=== PATIENT | female | born 1950 | race Caucasian/White ===

== ENCOUNTER → 2018-09-17 | Outpatient (REF) ==
[~2018-09-17] MED LIST: ALPRAZOLAM0.25 MG PO; CIPROFLOXACN500 MG PO; CRESTOR10 MG PO; CRESTOR5 MG PO; CYCLOBENZAPR10 MG PO; DIFLUCAN100 MG PO; ENALAPRIL10 MG PO; FLONASE NASAL50 MCG; FLUOXETINE40 MG PO; FUROSEMIDE40 MG PO; LEXAPRO10 MG PO; LIPITOR10 MG PO; LORTAB 1010 MG PO; LORTAB 7.5 PO; MACROBID100 MG PO; METRONIDAZOL500 MG PO; MUPIROCIN2 % EX; NIACIN500 M3 PO; PRAVASTATIN20 MG PO; PRESERVISION AREDS PO; PRILOSEC20 MG PO; PROZAC20 MG PO; PROZAC40 MG PO; RANITIDINE150 MG PO; SOMA350 MG PO; XANAX0.5 MG PO; ZPAK PO; ZYRTEC-D AL1 OR
== END | disposition home or self-care (01) | DRG 305 ==
LOC: LAB 10:46
PROVIDERS: ATTEND Internal Medicine Geriatric Medicine
DX: I10 Essential (primary) hypertension (principal); E78.5 Hyperlipidemia, unspecified

== ENCOUNTER 2019-01-09 15:52 | Observation (INO) | payer MEDICARE ==
[~2019-01-09] VITALS: Ht 154.9 cm; Wt 99.9 kg
[2019-01-09 16:25] VITALS: BP 184/89
[2019-01-09 17:40] LABS: HEMATOCRIT 40.8 % (37.0-47.0); HEMOGLOBIN 13.5 g/dl (12.0-16.0); IMMATURE GRANULOCYTES 0.4 % (0.0-5.0); MEAN CELL VOLUME 81.1 fL CALC (80.0-100.0); MEAN CORPUSCULAR HGB 26.8 pG CALC (26.0-32.0); MEAN CORPUSCULAR HGB CONC 33.1 g/L CALC (32.0-36.0); NEUT# 3.31 thou/uL (2.00-7.15); RED BLOOD COUNT 5.03 mill/uL (4.20-5.60); RED CELL DISTRI WIDTH 13.2 % (11.5-15.5)
--- NOTE | 2019-01-09 17:44 | NUR ---
PT HAD COME A DIRECT ADMIT. ASSESSMENT DONE. PT IS A&O X3. IVF INFUSING WELL. PT STATED HEADACHE PAIN A LITTLE LESS. PT LUNGS SOUND/WHEEZES. PT DENIES ANY NEEDS AT THIS TIME. SAFETY PRECAUTIONS REINFORCED AND CALL LIGHT IN REACH.
[2019-01-09 17:53] LABS: ANION GAP 14 (6-22 (CALC)); BUN 12 mg/dL (8-23); BUN/CREATININE RATIO 14 (12-20 (CALC)); CARBON DIOXIDE 24 mmol/l (22-30); CHLORIDE 103 mmol/l (95-108); CREATININE 0.8 mg/dL (0.5-1.0); GFR > 60 ML/MIN (>=60 (CALC)); GFR FOR AFR.AMER. > 60 ML/MIN (>=60 (CALC)); POTASSIUM 3.9 mmol/l (3.5-5.1); SODIUM 136 mmol/l (137-146)
[2019-01-09 17:57] VITALS: BP 166/71
[2019-01-09 18:58] LABS: URINE BILIRUBIN - DIPSTICK NEGATIVE (NEGATIVE); URINE BLOOD DIPSTICK NEGATIVE (NEGATIVE); URINE COLOR YELLOW; URINE GLUCOSE - DIPSTICK NEGATIVE (NEGATIVE); URINE KETONE 40 mg/dL (NEGATIVE); URINE LEUK ESTERASE NEGATIVE (NEGATIVE); URINE NITRITE - DIPSTICK NEGATIVE (Negative); URINE PROTEIN - DIPSTICK 30 mg/dL (NEG-TRACE); URINE SPECIFIC GRAVITY >=1.030; URINE UROBILINOGEN - DIPSTICK 0.2 E.U./dL (0.2)
--- NOTE | 2019-01-09 19:00 | NUR ---
RECEIVED REPORT FROM NURSE BENSON PATIENT RESTING IN BED, DENIES PAIN OR DISCOMFORT AT THIS TIME, CALL LIGHT AT REACH.
[2019-01-09 19:15] VITALS: BP 145/57
[2019-01-09 19:21] LABS: URINE RBC 0-2 RBC/hpf (0-5); URINE SQUAMOUS EPITHELIAL CELL FEW EPI/hpf (0-FEW)
--- NOTE | 2019-01-09 22:30 | NUR ---
PATIENT ALERT AND ORIENTED X 3 ABLE TO MAKE NEEDS KNOWN, WITH AN ONGOING IV OF D5 1/2 NS @120CC/HR INFUSING WELL ON RAC, REINFORCED ON CLEAR LIQUID DIET AT THIS TIME, NOTED TO HAVE AUDIBLE WHEEZES ON BOTH LUNG SANTIAGO, TRACE OF EDEMA ON BILATERAL ANKLES, CUURENTLY RESTING IN BED EYES CLOSED CALL LIGHT AT REACH.
--- NOTE | 2019-01-09 23:07 | NUR ---
PATIENT C/O O HEADACHE PS 6/10, BP 149/64, TEMP 100.4F, PRN TORADOL GIVEN WILL REEVALUATE.
--- NOTE | 2019-01-10 03:00 | NUR ---
PATIENT ALERT AND ORIENTED, PATIENT ASSISTED TO BATHROOM, AND ASSISTED BACK IN BED, DENIES PAIN OR DISCOMFORT CALL LIGHT AT REACH.
[2019-01-10 04:15] VITALS: BP 120/62
[2019-01-10 06:58] LABS: HEMATOCRIT 37.1 % (37.0-47.0); HEMOGLOBIN 12.1 g/dl (12.0-16.0); MEAN CELL VOLUME 82.8 fL CALC (80.0-100.0); MEAN CORPUSCULAR HGB CONC 32.6 g/L CALC (32.0-36.0); NEUT# 1.66 thou/uL (2.00-7.15); RED BLOOD COUNT 4.48 mill/uL (4.20-5.60); RED CELL DISTRI WIDTH 13.2 % (11.5-15.5)
--- NOTE | 2019-01-10 07:00 | NUR ---
SHIFT CHANGE REPORT, PT AWAKE ALERT AND ORIENTED SITTING IN HIGH FOWLERS POSITION IN BED, DENIES DISCOMFORT OF ANY KIND, DINIES NAUSEA/VOMITTING, STATES SHE FEELS MUCH BETTER AND WANTS TO GO HOME TODAY, ADVISED MD WILL ADDRESS NEEDS WHEN HE GETS HERE LATER. IVF INFUSING, CALL [facility] IN REACH.
[2019-01-10 07:17] LABS: ALBUMIN 3.2 g/dL (3.2-5.0); ALKALINE PHOSPHATASE 63 u/l (38-126); ANION GAP 10 (6-22 (CALC)); BILIRUBIN, TOTAL 0.4 mg/dL (0.0-1.4); BUN 13 mg/dL (8-23); BUN/CREATININE RATIO 15 (12-20 (CALC)); CARBON DIOXIDE 25 mmol/l (22-30); CHLORIDE 102 mmol/l (95-108); CREATININE 0.9 mg/dL (0.5-1.0); GFR > 60 ML/MIN (>=60 (CALC)); GFR FOR AFR.AMER. > 60 ML/MIN (>=60 (CALC)); POTASSIUM 3.6 mmol/l (3.5-5.1); SGOT/AST 36 u/l (9-36); SODIUM 134 mmol/l (137-146); TOTAL PROTEIN 5.7 g/dL (6.3-8.2)
[2019-01-10 07:51] VITALS: BP 123/57
--- NOTE | 2019-01-10 08:30 | NUR ---
DR ANNE HERE ROUNDING, DISCUSSED PLAN OF CARE TO ADVANCE DIET TOLERATING AND D/C HOME LATER IF NO MORE EPISODES VOMITTING AND IF TOLERATING DIET, PT STATED UNDERSTANDING.
--- NOTE | 2019-01-10 11:41 | NUR ---
RELAXING IN BED AT THIS TIME, ALL NEEDS MET/ADDRESSED, CALL [facility] IN REACH.
[2019-01-10 15:13] VITALS: BP 117/69
--- NOTE | 2019-01-10 17:30 | NUR ---
PT C/O SORE THROAT AND HEADACHE, DR ANNE ROUNDED AND WROTE ORDERS, COOL PACK APPLIED TO PAIN AREAS WHICH GAVE RELIEF, WILL CONTINUE TO MONITOR.
--- NOTE | 2019-01-10 19:10 | NUR ---
REPORT RECEIVED FROM DEON. PT RESTING IN RECLINER AT BEDSIDE, ALERT AND ORIENTED, RESPIRATIONS EVEN AND UNLABORED ON RA. PT DENIES ANY PAIN OR DISCOMFORT AT THIS TIME. SAFETY PRECAUTIONS IN PLACE, WILL CONTINUE TO MONITOR.
[2019-01-10 19:20] VITALS: BP 131/73
[2019-01-10 21:00] LABS: URINE BILIRUBIN - DIPSTICK NEGATIVE (NEGATIVE); URINE BLOOD DIPSTICK NEGATIVE (NEGATIVE); URINE COLOR YELLOW; URINE GLUCOSE - DIPSTICK NEGATIVE (NEGATIVE); URINE KETONE NEGATIVE (NEGATIVE); URINE LEUK ESTERASE NEGATIVE (Negative); URINE NITRITE - DIPSTICK NEGATIVE (Negative); URINE PROTEIN - DIPSTICK NEGATIVE (NEG-TRACE); URINE UROBILINOGEN - DIPSTICK 0.2 E.U./dL (0.2)
--- NOTE | 2019-01-10 21:00 | NUR ---
PT RESTING IN BED. ALERT AND ORIENTED. RESPIRATIONS EVEN AND UNLABORED ON RA, WHEEZES NOTED THROUGH OUT LUNGS. PT DENIES ANY PAIN OR DISCOMFORT AT THIS TIME. ASSISTED PT TO THE BATHROOM, ENCOURAGED PT TO CALL FOR ASSITANCE ONCE FINISHED. SAFETY PRECAUTIONS IN PLACE. WILL CONTINUE TO MONITOR.
[2019-01-10 21:07] LABS: URINE CLARITY CLEAR
--- NOTE | 2019-01-11 01:53 | NUR ---
PT RESTING IN BED NO S/S OF DISTRESS AT THIS TIME. WILL CONTINUE TO MONITOR.
[2019-01-11 03:15] VITALS: BP 146/78
--- NOTE | 2019-01-11 05:07 | NUR ---
PT RESTING IN BED, WITH EYES CLOSED. RESPIRATIONS EVEN AND UNLABORED ON RA. NO S/S OF DISTRESS AT THIS TIME. WILL CONTINUE TO MONITOR.
[2019-01-11 05:24] LABS: HEMATOCRIT 41.4 % (37.0-47.0); HEMOGLOBIN 13.4 g/dl (12.0-16.0); IMMATURE GRANULOCYTES 0.3 % (0.0-5.0); MEAN CORPUSCULAR HGB 26.9 pG CALC (26.0-32.0); MEAN CORPUSCULAR HGB CONC 32.4 g/L CALC (32.0-36.0); NEUT# 1.27 thou/uL (2.00-7.15); RED BLOOD COUNT 4.99 mill/uL (4.20-5.60)
[2019-01-11 05:41] LABS: ALBUMIN 3.2 g/dL (3.2-5.0); ALKALINE PHOSPHATASE 67 u/l (38-126); ANION GAP 11 (6-22 (CALC)); BILIRUBIN, TOTAL 0.3 mg/dL (0.0-1.4); BUN 12 mg/dL (8-23); BUN/CREATININE RATIO 15 (12-20 (CALC)); CARBON DIOXIDE 25 mmol/l (22-30); CHLORIDE 107 mmol/l (95-108); CREATININE 0.8 mg/dL (0.5-1.0); GFR > 60 ML/MIN (>=60 (CALC)); GFR FOR AFR.AMER. > 60 ML/MIN (>=60 (CALC)); POTASSIUM 3.8 mmol/l (3.5-5.1); SGOT/AST 35 u/l (9-36); SODIUM 140 mmol/l (137-146); TOTAL PROTEIN 5.8 g/dL (6.3-8.2)
--- NOTE | 2019-01-11 07:00 | NUR ---
SHIFT CHANGE REPORT, PT AWAKE ALERT AND ORIENTED SITTING UP IN BED, NO C/O DISCOMFORT, STATES SHE FEELS MUCH BETTER, ALL NEEDS ADDRESSED, CALL [facility] IN REACH. DR ANNE ROUNDED, DISCUSSED PLAN OF CARE, WROTE NEW ORDERS, PT STATED UNDERSTANDING.
[2019-01-11 08:09] VITALS: BP 169/77
[2019-01-11 10:26] VITALS: BP 153/71
--- NOTE | 2019-01-11 12:05 | NUR ---
Discharge instructions given. Patient verbalizes understanding of same. Discharged in stable condition via Wheelchair to Home with family. All belongings sent with pt.
== END 2019-01-11 11:53 | disposition home or self-care (01) ==
LOC: MS2 15:52
PROVIDERS: ADMIT Internal Medicine Geriatric Medicine; ATTEND Internal Medicine Geriatric Medicine
DX: E86.0 Dehydration (principal); R11.2 Nausea with vomiting, unspecified; R50.9 Fever, unspecified; R10.9 Unspecified abdominal pain; R19.7 Diarrhea, unspecified; I10 Essential (primary) hypertension; E78.5 Hyperlipidemia, unspecified; M19.90 Unspecified osteoarthritis, unspecified site; I25.10 Atherosclerotic heart disease of native coronary artery without angina pectoris
CPT/HCPCS: S0164